=== PATIENT | male | born 1995 | race Caucasian/White ===

== ENCOUNTER 2018-01-31 18:26 | Emergency (ER) | payer OTHER ==
[~2018-01-31] VITALS: Ht 177.8 cm; Wt 63.5 kg
[~2018-01-31 18:26] MED LIST: ULTRAM 50MG TAB50 MG PO
[2018-01-31] MEDS ORDERED: DOXYCYCLINE 10100 MG PO (19:01)
[2018-01-31 20:00] VITALS: BP 108/78
== END 2018-01-31 20:00 | disposition home or self-care (01) ==
LOC: M.ERS 18:26
DX: N48.9 Disorder of penis, unspecified (principal); F17.210 Nicotine dependence, cigarettes, uncomplicated; Z88.2 Allergy status to sulfonamides